=== PATIENT | female | born 1935 | race Caucasian/White ===

== ENCOUNTER 2021-06-21 18:09 | Inpatient (IN) | payer MEDICARE, BC ==
[~2021-06-21] VITALS: Ht 167.6 cm; Wt 63.2 kg
[~2021-06-21 18:09] MED LIST: ASPI-611 PO; FLUT1DIS4 INH; FURO20TA4 PO; OMEP20TA23 PO; PARO20TA6 PO; POTA99TA25 PO
[2021-06-21 19:05] LABS: BASOPHILS % (AUTO) 0.5 % (0-1); EOSINOPHILS # (AUTO) 0.4 X10'3 (0-0.9); EOSINOPHILS % (AUTO) 5.1 % (0-6); HEMATOCRIT 37.5 % (35.0-45.0); HEMOGLOBIN 12.4 g/dl (12.0-16.0); LYMPHOCYTES # (AUTO) 1.7 X10'3 (1.1-4.8); LYMPHOCYTES % (AUTO) 19.7 % (21-51); MEAN CORPUSCULAR HEMOGLOBIN 31.5 PG (27.0-31.0); MEAN CORPUSCULAR HGB CONC 33.1 g/dL (33.0-36.5); MEAN CORPUSCULAR VOLUME 95.3 FL (78-98); MEAN PLATELET VOLUME 7.6 FL (7.4-10.4); MONOCYTES # (AUTO) 0.9 X10'3 (0-0.9); MONOCYTES % (AUTO) 10.9 % (2-12); NEUTROPHILS # (AUTO) 5.4 X10'3 (1.8-7.7); NEUTROPHILS % (AUTO) 63.8 % (42-75); PLATELET COUNT 329 X10'3 (140-440); RED BLOOD COUNT 3.94 X10'6 (4.20-5.60); RED CELL DISTRIBUTION WIDTH 14.2 % (11.5-14.5); WHITE BLOOD COUNT 8.4 X10'3 (4.5-11.0)
[2021-06-21 19:34] LABS: ALANINE AMINOTRANSFERASE 17 U/L (12-78); ALBUMIN 3.9 G/DL (3.4-5.0); ALBUMIN/GLOBULIN RATIO 1.1 (1.1-1.5); ALKALINE PHOSPHATASE 71 IU/L (46-116); ANION GAP 12 (8-16); ASPARTATE AMINO TRANSFERASE 17 U/L (10-37); BILIRUBIN,TOTAL 0.6 MG/DL (0.1-1.0); BLOOD UREA NITROGEN 23 MG/DL (7-18); CALCIUM 8.9 MG/DL (8.5-10.1); CHLORIDE 105 MMOL/L (99-107); CREATININE 1.21 MG/DL (0.40-0.90); GLUCOSE 96 MG/DL (70-104); POTASSIUM 3.5 MMOL/L (3.5-5.1); SODIUM 142 MMOL/L (135-145); TOTAL CARBON DIOXIDE 25.5 MMOL/L (24-32); TOTAL PROTEIN 7.3 G/DL (6.4-8.2); eGFR 42 ML/MIN
[2021-06-21] MEDS ORDERED: temazepam 15mg capsule PO PRN (21:00)
[2021-06-21] MEDS ORDERED: iohexol 350MG/ML 100ml bottle IV ONE (21:09)
[2021-06-21] MEDS ORDERED: diphenhydrAMINE 25mg capsule PO PRN (21:35)
[2021-06-21] MEDS ORDERED: diphenhydrAMINE 50 mg/ml inj IV PRN (21:35)
[2021-06-21] MEDS ORDERED: HYDROmorphone inj. 0.5 MG/0.5 ML DISP.SYRIN IV PRN (21:35)
[2021-06-21] MEDS ORDERED: HYDROcodone/acetaminophen 5mg/325mg tablet PO PRN (21:35)
[2021-06-21] MEDS ORDERED: HYDROcodone/acetaminophen 10/325mg tab PO PRN (21:35)
[2021-06-21] MEDS ORDERED: ondansetron/PF 4mg/2ml inj IV PRN (21:35)
[2021-06-21] MEDS ORDERED: acetaminophen 650mg rectal suppository RC PRN (21:35)
[2021-06-21] MEDS ORDERED: morphine 2 MG/ML inj. syringe IV PRN ×2 (21:35)
[2021-06-21] MEDS ORDERED: mag hydrox/Alum hydrox/simeth 30ml oral suspension PO PRN (21:35)
[2021-06-21] MEDS ORDERED: bisacodyl 10mg suppository rectal RC PRN (21:35)
[2021-06-21] MEDS ORDERED: acetaminophen 325mg tablet PO PRN ×2 (21:35)
[2021-06-21] MEDS ORDERED: ondansetron 4mg rapidly disintigrating tab PO PRN (21:35)
[2021-06-21] MEDS ORDERED: magnesium hydroxide 30ml (MOM) UD suspension PO PRN (21:35)
[2021-06-21 21:54] LABS: HEMOGLOBIN A1C 5.6 % (4.5-6.2)
[2021-06-21 21:57] LABS: PARTIAL THROMBOPLASTIN TIME 25 SECONDS (22-32)
[2021-06-21 22:03] LABS: MAGNESIUM 1.8 MG/DL (1.5-2.4); PHOSPHORUS 3.4 MG/DL (2.3-4.5)
--- NOTE | 2021-06-21 22:20 | NUR ---
dr carroll at bedside for admission. Pts daughter is at bedside, Nivia heredia. VSS. Spos 92% no RA
[2021-06-21] MEDS: normal saline 1000ml 1,000 ML IV SCH (22:45)
--- NOTE | 2021-06-21 23:13 | NUR ---
PTS DAUGHTER JUST LEFT FOR THE NIGHT. ADMISSION ORDERS WRITTEN. AWAITING IPA. PT GIVEN SNACKS AND COFFEE.
--- NOTE | 2021-06-21 23:46 | NUR ---
[facility] number [phone]
[2021-06-22 01:59] LABS: BASOPHILS # (AUTO) 0.1 X10'3 (0-0.2); BASOPHILS % (AUTO) 0.9 % (0-1); EOSINOPHILS # (AUTO) 0.4 X10'3 (0-0.9); EOSINOPHILS % (AUTO) 5.1 % (0-6); HEMATOCRIT 33.7 % (35.0-45.0); HEMOGLOBIN 11.3 g/dl (12.0-16.0); LYMPHOCYTES # (AUTO) 1.6 X10'3 (1.1-4.8); MEAN CORPUSCULAR HEMOGLOBIN 31.4 PG (27.0-31.0); MEAN CORPUSCULAR HGB CONC 33.5 g/dL (33.0-36.5); MEAN CORPUSCULAR VOLUME 93.7 FL (78-98); MEAN PLATELET VOLUME 7.7 FL (7.4-10.4); MONOCYTES % (AUTO) 14.3 % (2-12); NEUTROPHILS # (AUTO) 4.1 X10'3 (1.8-7.7); NEUTROPHILS % (AUTO) 57.7 % (42-75); PLATELET COUNT 297 X10'3 (140-440); RED BLOOD COUNT 3.59 X10'6 (4.20-5.60); RED CELL DISTRIBUTION WIDTH 14.3 % (11.5-14.5); WHITE BLOOD COUNT 7.1 X10'3 (4.5-11.0)
[2021-06-22 02:04] LABS: ALANINE AMINOTRANSFERASE 16 U/L (12-78); ALBUMIN 3.2 G/DL (3.4-5.0); ALBUMIN/GLOBULIN RATIO 1.1 (1.1-1.5); ALKALINE PHOSPHATASE 60 IU/L (46-116); ANION GAP 10 (8-16); ASPARTATE AMINO TRANSFERASE 14 U/L (10-37); BILIRUBIN,TOTAL 0.3 MG/DL (0.1-1.0); BLOOD UREA NITROGEN 22 MG/DL (7-18); BUN/CREATININE RATIO 19.3 (6.6-38.0); CALCIUM 8.2 MG/DL (8.5-10.1); CHLORIDE 105 MMOL/L (99-107); CHOL/HDL RATIO 3.2 (0.00-4.99); CHOLESTEROL 162 MG/DL (0-200); CREATININE 1.14 MG/DL (0.40-0.90); GLUCOSE 102 MG/DL (70-104); HDL CHOLESTEROL 50 MG/DL (35-60); LDL CHOLESTEROL 87 MG/DL (50-100); POTASSIUM 3.3 MMOL/L (3.5-5.1); SODIUM 141 MMOL/L (135-145); TOTAL CARBON DIOXIDE 26.1 MMOL/L (24-32); TOTAL PROTEIN 6.2 G/DL (6.4-8.2); TRIGLYCERIDES 109 MG/DL (20-135); eGFR 45 ML/MIN
[2021-06-22] MEDS: normal saline 1000ml 1,000 ML IV SCH (07:35)
[2021-06-22] MEDS: docusate sod 100mg capsule PO SCH ×2 (09:01→20:18)
[2021-06-22] MEDS: pantoprazole 40mg Tablet.DR PO SCH (09:01)
[2021-06-22] MEDS: aspirin 81mg, enteric-coated 1 TAB TABLET.DR PO SCH (09:01)
[2021-06-22] MEDS: clopidogrel 75mg tablet PO SCH (09:01)
[2021-06-22] MEDS: PARoxetine 20mg tablet PO SCH (09:02)
[2021-06-22] MEDS: albuterol 2.5 MG/3 ML nebule NEB SCH ×3 (09:19→20:30)
[2021-06-22] MEDS: budesonide 0.5mg/2ml UD nebule IH SCH ×2 (09:19→20:30)
[2021-06-22] MEDS ORDERED: CLOP75TA34 PO (16:38)
[2021-06-22] MEDS ORDERED: ATOR20TA66 PO (16:38)
--- NOTE | 2021-06-22 19:44 | NUR ---
Received report from MYLES King. Waiting for pt arrival. Addendum: 06/22/21 at 1944 by Dianna Soriano RN Amended: Links added.
--- NOTE | 2021-06-22 20:00 | NUR ---
Pt brought to room via bed. daughter at bedside. Oriented to room and routine. Addendum: 06/22/21 at 2013 by Dianna Soriano RN Amended: Links added.
[2021-06-22 22:00] VITALS: BP 121/51
[2021-06-23 02:00] VITALS: BP 124/65
[2021-06-23] MEDS: albuterol 2.5 MG/3 ML nebule NEB SCH ×2 (02:00→08:49)
[2021-06-23 06:28] LABS: BASOPHILS % (AUTO) 0.4 % (0-1); EOSINOPHILS # (AUTO) 0.4 X10'3 (0-0.9); EOSINOPHILS % (AUTO) 5.2 % (0-6); HEMATOCRIT 32.4 % (35.0-45.0); HEMOGLOBIN 10.6 g/dl (12.0-16.0); LYMPHOCYTES # (AUTO) 1.6 X10'3 (1.1-4.8); LYMPHOCYTES % (AUTO) 23.3 % (21-51); MEAN CORPUSCULAR HEMOGLOBIN 31.6 PG (27.0-31.0); MEAN CORPUSCULAR HGB CONC 32.8 g/dL (33.0-36.5); MEAN CORPUSCULAR VOLUME 96.5 FL (78-98); MEAN PLATELET VOLUME 7.7 FL (7.4-10.4); MONOCYTES # (AUTO) 0.9 X10'3 (0-0.9); MONOCYTES % (AUTO) 13.3 % (2-12); NEUTROPHILS % (AUTO) 57.8 % (42-75); PLATELET COUNT 262 X10'3 (140-440); RED BLOOD COUNT 3.36 X10'6 (4.20-5.60); RED CELL DISTRIBUTION WIDTH 14.4 % (11.5-14.5)
[2021-06-23 06:51] LABS: ALANINE AMINOTRANSFERASE 11 U/L (12-78); ALKALINE PHOSPHATASE 56 IU/L (46-116); ANION GAP 9 (8-16); ASPARTATE AMINO TRANSFERASE 12 U/L (10-37); BILIRUBIN,TOTAL 0.4 MG/DL (0.1-1.0); BLOOD UREA NITROGEN 16 MG/DL (7-18); BUN/CREATININE RATIO 16.8 (6.6-38.0); CALCIUM 8.7 MG/DL (8.5-10.1); CHLORIDE 110 MMOL/L (99-107); CHOL/HDL RATIO 3.1 (0.00-4.99); CHOLESTEROL 156 MG/DL (0-200); CREATININE 0.95 MG/DL (0.40-0.90); GLUCOSE 101 MG/DL (70-104); HDL CHOLESTEROL 51 MG/DL (35-60); LDL CHOLESTEROL 80 MG/DL (50-100); POTASSIUM 3.4 MMOL/L (3.5-5.1); SODIUM 145 MMOL/L (135-145); TOTAL CARBON DIOXIDE 25.7 MMOL/L (24-32); TOTAL PROTEIN 5.9 G/DL (6.4-8.2); TRIGLYCERIDES 67 MG/DL (20-135); eGFR 56 ML/MIN
--- NOTE | 2021-06-23 06:51 | NUR ---
Problems reprioritized. Patient report given, questions answered & plan of care reviewed with RN. Addendum: 06/23/21 at 0652 by Dianna Soriano RN Amended: Links added.
[2021-06-23] MEDS ORDERED: atorvastatin 20mg tablet PO SCH (08:00)
[2021-06-23] MEDS: clopidogrel 75mg tablet PO SCH (08:37)
[2021-06-23] MEDS: docusate sod 100mg capsule PO SCH (08:38)
[2021-06-23] MEDS: pantoprazole 40mg Tablet.DR PO SCH (08:38)
[2021-06-23] MEDS: aspirin 81mg, enteric-coated 1 TAB TABLET.DR PO SCH (08:39)
[2021-06-23] MEDS: PARoxetine 20mg tablet PO SCH (08:41)
[2021-06-23] MEDS: budesonide 0.5mg/2ml UD nebule IH SCH (08:49)
== END 2021-06-23 13:22 | disposition home or self-care (01) | DRG 291 ==
LOC: ER 18:10 → ED HOLD 21:38 → PCU 3S 06-22 19:58
PROVIDERS: ADMIT Family Medicine; ATTEND Internal Medicine
PROC: B3251ZZ Computerized Tomography (CT Scan) of Bilateral Common Carotid Arteries using Low Osmolar Contrast (ICD-10-PCS; principal; 2021-06-21)
PROC: B32G1ZZ Computerized Tomography (CT Scan) of Bilateral Vertebral Arteries using Low Osmolar Contrast (ICD-10-PCS; 2021-06-21)
PROC: B32R1ZZ Computerized Tomography (CT Scan) of Intracranial Arteries using Low Osmolar Contrast (ICD-10-PCS; 2021-06-21)
PROC: B3281ZZ Computerized Tomography (CT Scan) of Bilateral Internal Carotid Arteries using Low Osmolar Contrast (ICD-10-PCS; 2021-06-21)
DX: I13.0 Hypertensive heart and chronic kidney disease with heart failure and stage 1 through stage 4 chronic kidney disease, or unspecified chronic kidney disease (principal); I50.33 Acute on chronic diastolic (congestive) heart failure; G45.9 Transient cerebral ischemic attack, unspecified; N17.9 Acute kidney failure, unspecified; D64.9 Anemia, unspecified; E78.5 Hyperlipidemia, unspecified; F17.210 Nicotine dependence, cigarettes, uncomplicated; I08.1 Rheumatic disorders of both mitral and tricuspid valves; R29.700 NIHSS score 0; I25.10 Atherosclerotic heart disease of native coronary artery without angina pectoris; J44.9 Chronic obstructive pulmonary disease, unspecified; N18.9 Chronic kidney disease, unspecified; R09.02 Hypoxemia; Z88.2 Allergy status to sulfonamides; Z79.899 Other long term (current) drug therapy; Z79.82 Long term (current) use of aspirin
CPT/HCPCS: 36415; 70450; 70496; 70498; 70551; 71045; 80053; 80061; 82948; 83036; 83735; 83880; 84100; 84443; 85025; 85610; 85730; 87081; 93005; 93306; 94640; 94760; 97161; 97530; 99285; G0378; J7030; J7626; Q9967

== ENCOUNTER 2021-12-03 19:00 | Emergency (ER) | payer MEDICARE, BC ==
[~2021-12-03] VITALS: Ht 167.6 cm; Wt 60.0 kg
[~2021-12-03 19:00] MED LIST changes: +ATOR20TA66 PO; +CLOP75TA34 PO
[2021-12-03] MEDS ORDERED: LIDOcaine 1% W/epiNEPHrine 1:100,000 20ml vial SQ ONE (21:40)
[2021-12-03 23:01] VITALS: BP 150/73
--- NOTE | 2021-12-03 23:01 | NUR ---
PREPARED LAC TRAY, SUTURES, AND LIDOCAINE FOR PA. SUTURES PLACED IN LIP.
== END 2021-12-03 23:15 | disposition home or self-care (01) ==
LOC: ER 19:01
DX: S01.511A Laceration without foreign body of lip, initial encounter (principal); J44.9 Chronic obstructive pulmonary disease, unspecified; Z85.9 Personal history of malignant neoplasm, unspecified; Z86.73 Personal history of transient ischemic attack (TIA), and cerebral infarction without residual deficits; Z79.82 Long term (current) use of aspirin; Z79.899 Other long term (current) drug therapy; Z88.2 Allergy status to sulfonamides; W18.09XA Striking against other object with subsequent fall, initial encounter; Z91.81 History of falling; Y93.89 Activity, other specified; Y92.89 Other specified places as the place of occurrence of the external cause; Y99.8 Other external cause status
CPT/HCPCS: 40650; 70450; 99284

== ENCOUNTER 2021-12-06 21:40 | Inpatient (IN) | payer MEDICARE, BC ==
[~2021-12-06] VITALS: Ht 167.6 cm; Wt 60.0 kg
[~2021-12-06 21:40] MED LIST changes: +temazepam 15mg capsule PO PRN
--- NOTE | 2021-12-06 22:11 | NUR ---
ARRIVED FOR LEVEL 1 WITH ONSET AT 2100 [address]. LKW WAS 15 MIN PRIOR TO ONSET. DAUGHTER STATED PT BEGAN TALKING "GIBBERISH'. PT ALSO SAID SHE EXPERIENCED A "SHADOW" IN THE CORNER OF HER LEFT EYE AT THIS TIME. IT TOOK SOME COAXING TO GET PT TO AGREE TO COME TO HOSPITAL. SYMPTOMS HAD RESOLVED BY TIME PT HAD ARRIVED TO ED. ARRIVED BY PRIVATE AUTO. NIH IS O. 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
[2021-12-06 22:18] LABS: BASOPHILS # (AUTO) 0.1 X10'3 (0-0.2); BASOPHILS % (AUTO) 0.7 % (0-1); EOSINOPHILS # (AUTO) 0.3 X10'3 (0-0.9); EOSINOPHILS % (AUTO) 3.9 % (0-6); HEMATOCRIT 35.4 % (35.0-45.0); HEMOGLOBIN 11.8 g/dl (12.0-16.0); LYMPHOCYTES # (AUTO) 1.2 X10'3 (1.1-4.8); LYMPHOCYTES % (AUTO) 15.2 % (21-51); MEAN CORPUSCULAR HEMOGLOBIN 30.1 PG (27.0-31.0); MEAN CORPUSCULAR HGB CONC 33.3 g/dL (33.0-36.5); MEAN CORPUSCULAR VOLUME 90.2 FL (78-98); MEAN PLATELET VOLUME 7.1 FL (7.4-10.4); MONOCYTES # (AUTO) 0.9 X10'3 (0-0.9); MONOCYTES % (AUTO) 11.6 % (2-12); NEUTROPHILS # (AUTO) 5.4 X10'3 (1.8-7.7); NEUTROPHILS % (AUTO) 68.6 % (42-75); PLATELET COUNT 319 X10'3 (140-440); RED BLOOD COUNT 3.92 X10'6 (4.20-5.60); RED CELL DISTRIBUTION WIDTH 14.3 % (11.5-14.5); WHITE BLOOD COUNT 7.8 X10'3 (4.5-11.0)
[2021-12-06 22:31] LABS: APTT 26 SECONDS (22-32)
[2021-12-06 22:33] LABS: ALANINE AMINOTRANSFERASE 16 U/L (12-78); ALBUMIN 3.4 G/DL (3.4-5.0); ALBUMIN/GLOBULIN RATIO 0.9 (1.1-1.5); ALKALINE PHOSPHATASE 70 IU/L (46-116); ANION GAP 9 (8-16); ASPARTATE AMINO TRANSFERASE 14 U/L (10-37); BILIRUBIN,TOTAL 0.4 MG/DL (0.1-1.0); BLOOD UREA NITROGEN 16 MG/DL (7-18); BUN/CREATININE RATIO 16.8 (6.6-38.0); CALCIUM 8.8 MG/DL (8.5-10.1); CHLORIDE 103 MMOL/L (99-107); CREATININE 0.95 MG/DL (0.40-0.90); GLUCOSE 109 MG/DL (70-104); POTASSIUM 3.5 MMOL/L (3.5-5.1); SODIUM 140 MMOL/L (135-145); TOTAL CARBON DIOXIDE 28.5 MMOL/L (24-32); TOTAL PROTEIN 7.1 G/DL (6.4-8.2); eGFR 56 ML/MIN
[2021-12-06] MEDS ORDERED: normal saline 1000ML IV soln IVB ONE (22:40)
[2021-12-06] MEDS ORDERED: normal saline 1000ml 1,000 ML IV ONE (22:40)
--- NOTE | 2021-12-06 22:40 | NUR ---
TELE NEURO EXAM COMPLETED WITH DR POSADAS. FINDINGS DISCUSSED WITH DR GARCÍA.
[2021-12-06] MEDS ORDERED: aspirin 81mg, enteric-coated 1 TAB TABLET.DR PO ONE (22:55)
[2021-12-06] MEDS ORDERED: potassium Cl 20 mEq SR tablet PO PRN ×2 (23:10)
[2021-12-06] MEDS ORDERED: potassium CL 10mEq/100ml bag 100 ML IV PRN (23:10)
[2021-12-06] MEDS ORDERED: magnesium 4gm in 100ml NS 100 ML IV PRN (23:10)
[2021-12-06] MEDS ORDERED: acetaminophen 325mg tablet PO PRN ×2 (23:10)
[2021-12-06] MEDS ORDERED: ondansetron/PF 4mg/2ml inj IV PRN (23:10)
[2021-12-06] MEDS ORDERED: magnesium 2GM in 50ml NS 50 ML IV PRN (23:10)
[2021-12-06] MEDS ORDERED: magnesium Cl slow-release 64mg tablet PO PRN (23:10)
[2021-12-06] MEDS: normal saline 1000ml 1,000 ML IV SCH (23:21)
[2021-12-06] MEDS ORDERED: MONT-40 PO (23:23)
[2021-12-06] MEDS ORDERED: CLOP75TA33 PO (23:23)
[2021-12-06] MEDS ORDERED: ATOR10TA70 PO (23:23)
[2021-12-07] VITALS: BP 139/60
--- NOTE | 2021-12-07 00:03 | NUR ---
Report received from VIRY Godoy RN about patient going to room 2510C.
--- NOTE | 2021-12-07 00:40 | NUR ---
Patient arrived to unit in stable condition, AAOX4, no acute distress noted. Dx: Slurred speech, confused, left side weakness r/o CVA. Skin intact, right breast partial mastectomy lymph removed removed. ANABELLE lower ext. with edema +1 noted. Denied any pain or discomfort. Safety measures and comfort maintained. Call light within reach. Bedside commode provided. Will continue to monitor.
[2021-12-07 02:00] VITALS: BP 114/60
[2021-12-07 04:00] VITALS: BP 114/60
[2021-12-07 06:00] VITALS: BP 120/57
--- NOTE | 2021-12-07 06:37 | NUR ---
Problems reprioritized. Patient report given, questions answered & plan of care reviewed with MYLES Shaver.
[2021-12-07 07:35] LABS: BASOPHILS # (AUTO) 0.1 X10'3 (0-0.2); BASOPHILS % (AUTO) 0.7 % (0-1); EOSINOPHILS # (AUTO) 0.2 X10'3 (0-0.9); EOSINOPHILS % (AUTO) 2.9 % (0-6); HEMOGLOBIN 10.4 g/dl (12.0-16.0); LYMPHOCYTES # (AUTO) 1.3 X10'3 (1.1-4.8); LYMPHOCYTES % (AUTO) 17.2 % (21-51); MEAN CORPUSCULAR HEMOGLOBIN 30.1 PG (27.0-31.0); MEAN CORPUSCULAR HGB CONC 33.4 g/dL (33.0-36.5); MEAN PLATELET VOLUME 7.3 FL (7.4-10.4); MONOCYTES # (AUTO) 0.8 X10'3 (0-0.9); MONOCYTES % (AUTO) 10.9 % (2-12); NEUTROPHILS % (AUTO) 68.3 % (42-75); PLATELET COUNT 289 X10'3 (140-440); RED BLOOD COUNT 3.44 X10'6 (4.20-5.60); WHITE BLOOD COUNT 7.4 X10'3 (4.5-11.0)
[2021-12-07] MEDS ORDERED: K and/or MAG REPLACEMENT MC SCH (08:00)
[2021-12-07] MEDS ORDERED: montelukast 10mg tablet PO SCH (08:00)
[2021-12-07] MEDS ORDERED: PARoxetine 20mg tablet PO SCH (08:00)
[2021-12-07] MEDS ORDERED: atorvastatin 10mg tablet PO SCH (08:00)
[2021-12-07] MEDS ORDERED: clopidogrel 75mg tablet PO SCH ×2 (08:00)
[2021-12-07] MEDS ORDERED: furosemide 20MG tablet PO SCH (08:00)
[2021-12-07] MEDS ORDERED: heparin, porcine 5000 units/ml vial SQ SCH (08:00)
[2021-12-07] MEDS ORDERED: aspirin 81mg, enteric-coated 1 TAB TABLET.DR PO SCH (08:00)
[2021-12-07 08:02] LABS: ALANINE AMINOTRANSFERASE 12 U/L (12-78); ALBUMIN 2.8 G/DL (3.4-5.0); ALKALINE PHOSPHATASE 59 IU/L (46-116); ANION GAP 11 (8-16); ASPARTATE AMINO TRANSFERASE 13 U/L (10-37); BILIRUBIN,TOTAL 0.6 MG/DL (0.1-1.0); BLOOD UREA NITROGEN 12 MG/DL (7-18); BUN/CREATININE RATIO 15.2 (6.6-38.0); CALCIUM 8.2 MG/DL (8.5-10.1); CHLORIDE 107 MMOL/L (99-107); CHOL/HDL RATIO 2.9 (0.00-4.99); CHOLESTEROL 154 MG/DL (0-200); CREATININE 0.79 MG/DL (0.40-0.90); GLUCOSE 98 MG/DL (70-104); HDL CHOLESTEROL 54 MG/DL (35-60); LDL CHOLESTEROL 77 MG/DL (50-100); POTASSIUM 3.8 MMOL/L (3.5-5.1); SODIUM 143 MMOL/L (135-145); TOTAL CARBON DIOXIDE 25.1 MMOL/L (24-32); TOTAL PROTEIN 5.6 G/DL (6.4-8.2); TRIGLYCERIDES 72 MG/DL (20-135); eGFR 69 ML/MIN
[2021-12-07] MEDS ORDERED: iohexol 350MG/ML 100ml bottle IV ONE (10:22)
--- NOTE | 2021-12-07 11:27 | NUR ---
promotional table spacer PAGER ID: [phone] MESSAGE: [id number] need ativan for mri please
[2021-12-07] MEDS ORDERED: LORazepam 2 mg/ml vial IV ONE (11:30)
--- NOTE | 2021-12-07 13:59 | NUR ---
Nih is 1. Pt unsure if its end of November or December 11. In good spirits. MRI negative for stroke. Spoke with pt and pts daughter. Questions answered as able. PT yet to evaluate.
[2021-12-07] MEDS: normal saline 1000ml 1,000 ML IV SCH (14:16)
[2021-12-07 15:00] VITALS: BP 107/63
[2021-12-07] MEDS ORDERED: TICA90TA2 PO (15:33)
== END 2021-12-07 16:45 | disposition home or self-care (01) | DRG 69 ==
LOC: ER 21:40 → ED HOLD 23:13 → PCU 3S 12-07 00:25
PROVIDERS: ADMIT Internal Medicine; ATTEND Family Medicine
PROC: B3251ZZ Computerized Tomography (CT Scan) of Bilateral Common Carotid Arteries using Low Osmolar Contrast (ICD-10-PCS; principal; 2021-12-07)
PROC: B32G1ZZ Computerized Tomography (CT Scan) of Bilateral Vertebral Arteries using Low Osmolar Contrast (ICD-10-PCS; 2021-12-07)
PROC: B32R1ZZ Computerized Tomography (CT Scan) of Intracranial Arteries using Low Osmolar Contrast (ICD-10-PCS; 2021-12-07)
PROC: B3281ZZ Computerized Tomography (CT Scan) of Bilateral Internal Carotid Arteries using Low Osmolar Contrast (ICD-10-PCS; 2021-12-07)
DX: G45.9 Transient cerebral ischemic attack, unspecified (principal); R47.01 Aphasia; Z66 Do not resuscitate; E78.5 Hyperlipidemia, unspecified; I10 Essential (primary) hypertension; M79.10 Myalgia, unspecified site; J44.9 Chronic obstructive pulmonary disease, unspecified; Z86.73 Personal history of transient ischemic attack (TIA), and cerebral infarction without residual deficits; Z87.891 Personal history of nicotine dependence; Z88.2 Allergy status to sulfonamides; Z72.89 Other problems related to lifestyle
CPT/HCPCS: 36415; 70450; 70496; 70498; 70551; 71045; 80053; 80061; 82948; 84484; 85025; 85610; 85730; 87081; 93005; 93306; 93880; 96360; 97116; 97161; 97530; 99285; G0378; J1644; J7030; Q9967

== ENCOUNTER 2023-03-21 20:54 | Emergency (ER) | payer MEDICARE, BC ==
[~2023-03-21] VITALS: Ht 167.6 cm; Wt 54.0 kg
[~2023-03-21 20:54] MED LIST changes: +ATOR10TA70 PO; -ATOR20TA66 PO; -CLOP75TA34 PO; -FLUT1DIS4 INH; +MONT-40 PO; -OMEP20TA23 PO; -POTA99TA25 PO; +TICA90TA2 PO; -temazepam 15mg capsule PO PRN
[2023-03-21 20:55] VITALS: BP 124/50
[2023-03-21] MEDS ORDERED: bacitracin 15gm ointment TP ONE (21:05)
[2023-03-21] MEDS ORDERED: LIDOcaine 1%/PF 5ML 10 MG/ML VIAL IJ ONE (21:10)
[2023-03-21] MEDS ORDERED: LIDOcaine 5% patch TP STA (23:06)
== END 2023-03-21 23:17 | disposition home or self-care (01) ==
LOC: ER 20:55
DX: S01.81XA Laceration without foreign body of other part of head, initial encounter (principal); W18.39XA Other fall on same level, initial encounter; Y93.89 Activity, other specified; Y92.89 Other specified places as the place of occurrence of the external cause; Y99.8 Other external cause status
CPT/HCPCS: 12013; 70450; 72125; 99284; J3490; J7030; A6449